=== PATIENT | male | born 1960 | race Caucasian/White ===

== ENCOUNTER 2017-05-27 11:02 | Outpatient (CLI) ==
--- NOTE | 2017-05-27 11:50 | DI ---
EXAM: Five views of the lumbar spine HISTORY: Left-sided sciatica. COMPARISON: None FINDINGS: There is no acute compression fracture. Minimal nonspecific wedge deformity at L4 and supe rior endplate minimal changes at L2. There is no lytic or blastic lesion. There is minimal facet ar thropathy and disc osteophytes. The lumbosacral junction is intact. IMPRESSION: 1. No acute compression fracture or subluxation. 2. 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 There is mild wedge def ormity at L4.
== END 2017-05-27 11:03 | disposition home or self-care (01) ==
LOC: RAD 11:02
PROVIDERS: ATTEND Internal Medicine
DX: M54.32 Sciatica, left side (principal)

== ENCOUNTER 2017-07-25 15:45 | Outpatient (RCR) ==
--- NOTE | 2017-07-18 13:26 | RS.OPPTEV2 ---
Date of Note: 07/15/17 Visit #: 1 Date of Evaluation: 07/15/17 Payer Source: Insurance Surgery Performed?: No Treatment Diagnosis: displacement of lumbar intervertebral disc without myelopathy History of Condition/Mechanism of Injury:: pt has had long history of LBP. Prior Level of Function.....Patient was independent with: ADL's, Self Care, Work /Vocation, Ambulation/Mobility, Community Integration/Access Functional Limitations: Bending, Squatting, Ambulation, Community Access/ Integration Current Subjective/complaints:: pt states that he needs to make it 2 more years working before he retires. States that his pain has been increasing recently. Treatment Side (optional): Bilateral *Precautions: n/a Medical History Medical History: Hypertension Surgical History Comments:: appey, torn meniscus R Smoking Status: Former smoker Diagnostic Testing/Imaging:: had an MRI at [facility] Hx Home Medications: losartin, norco, seroquel, clonazepam, chantix Patient's Goals: decrease back pain and be able to work for 2 more years. Pain Assessment - Pain Description Pain Location: lumbar spine Pain Description: Radiating, Aching Current Pain Intensity: 5-6 Worst Pain Intensity: 6-8 Functional Outcome Measure Oswestry LBP: 19 (38%) - G Codes & Severity Modifier G Codes & Modifier: n/a Source of G Code score: n/a Observation - Observation Posture: Forward Head, Rounded Shoulders, Increased Thoracic Kyphosis, Decreased Lumbar Lordosis Gait - Gait Pattern Gait Comments: slight increased lat sway General Range of Motion: BUE WFL's. BLE WFL's Muscle Strength: BUE 5/5. BLE 5/5 - ROM Lumbar Flexion: Hand reach to patellae Sidebending to Left: Reach to Lateral Joint Line Sidebending to Right: Reach to Lateral Joint Line Lumbar Spine ROM Limitations: Soft Tissue Tightness, Muscle Weakness, Pain - Special Tests SLR Test: Positive Right Comments: pt with pain with ext, slight decreased pain with knee to chest. Palpation Palpation Findings: Tenderness, Trigger Point Comments:: trigger points noted in R lower lumbar. Tightness in B hamstrings, and piriformis Sensation - Sensation Right Lower Extremity: Impaired Comments: n/t B feet R worse than left Balance - Sitting Balance Static Sitting Balance: Normal Dynamic Sitting Balance: Normal - Standing Balance Static Standing Balance: Normal Dynamic Standing Balance: Normal - Treatment Modality: Electrical Stim Unattended Parameters/Method Applied: IFC x 20 mins at 12pv Treatment Area: R lumbar area Patient Position: Left Sidelying - Heat/Cryotherapy Treatment: Hot Pack Comments:: lumbar area Interventions - Exercise/Activities/Manual Therapy Exercises/Activities: pt performed pelvic tilt, knee to chest, hamstring stretch , piriformis stretch, isometric hip add. Manual Therapy: n/a HOME EXERCISE PROGRAM: pt given written HEP including pelvic tilts, knee to chest, hamstring stretch, piriformis stretch, isometric hip add - Charges Timed Code Treatment Minutes: 42 Total Treatment Time: 64 Procedures billed for this date of service:: eval low, estim unattended, hot pack EVALUATION COMPLEXITY LEVEL EVALUATION COMPLEXITY LEVEL: HISTORY: Low (back pain, htn), EXAM OF BODY SYSTEMS : Medium (pain, ROM, strength, muscle tightness), CLINICAL PRESENTATION: Low ( stable), CLINICAL DECISION MAKING: Low Assessment Assessment: pt presents with lumbar pain radiating into RLE. pt with mod tightness in B hamstring, piriformis. pt with decreased sensation R worse than L. Feel pt would benefit from skilled PT for therex for gentle stretching and strengthening for back stabilization. Patient Education: Home Exercise Program, Education of Plan of Care Rehab Potential: Good Short Term Goals Goal #1: pt rate pain <5 with activity Goal to be met by: 07/29/17 Goal #2: pt with decreased hamstring/piriformis tightness Goal to be met by: 07/29/17 Goal #3: pt independent with initial HEP Goal to be met by: 07/29/17 Senior Living Goals Goal #1: pt rate pain <3 with activity with no radiating pain into RLE Goal to be met by: 08/19/17 Goal #2: pt report increased ability to perform work duties with decreased pain. Goal to be met by: 08/19/17 Goal #3: B hamstrings equal BLE Goal to be met by: 08/19/17 Plan - Treatment to be Provided Procedures: Therapeutic Exercises, Therapeutic Activity, Manual Therapy, Massage , Patient Education Modalities: Electrical Stimulation, Ultrasound/Phonophoresis, Class IV Laser, Cryotherapy, Hot Packs - Treatment Plan Frequency: 2-3x a week Duration: 6 weeks ORDER # VISITS AND/OR THROUGH DATE: 08/19/17 - Treatment Code (1) Lumbar back pain with radiculopathy affecting right lower extremity Code(s): M54.17 - RADICULOPATHY, LUMBOSACRAL REGION (2) Muscle tightness Code(s): M62.89 - OTHER SPECIFIED DISORDERS OF MUSCLE
--- NOTE | 2017-07-18 16:54 | RS.OPPTDN ---
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 He says he plans to go home and rest after today's session. Rates pain 7/10 with [place], 3 Ale[place], and B.C. powder today. *Precautions: n/a - Treatment Modality: Electrical Stim Unattended Parameters/Method Applied: IFC @ 23 pk volts to the lower back in sidelying with heat Patient Position: Left Sidelying - Heat/Cryotherapy Treatment: Hot Pack Interventions - Exercise/Activities/Manual Therapy Exercises/Activities: Patient receives passive stretching for SKTC, HS, Piriformis, and lower trunk rotation x 3 bilaterally. He performs pillow squeezes, isometric hip abd/flexion x 10. Total minutes of Exercise: 16 Manual Therapy: n/a HOME EXERCISE PROGRAM: pt given written HEP including pelvic tilts, knee to chest, hamstring stretch, piriformis stretch, isometric hip add - Charges Timed Code Treatment Minutes: 16 Total Treatment Time: 36 Procedures billed for this date of service:: hp, estim (un), ex Assessment: Patient demo hamstring inflexibility bilaterally, but did improve with progressive stretching today. Decreased pain noted with initial treatment at eval, but later increased with returning to job duties. Today, he admits improved pain and will be going home afterwards and resting. He provides only minimal resistance with all isometrics today. Patient Education: Education of diagnosis, Body/Joint mechanics, Home Exercise Program, Education of Plan of Care Short Term Goals Goal #1: pt rate pain <5 with activity Goal to be met by: 07/29/17 Goal #2: pt with decreased hamstring/piriformis tightness Goal to be met by: 07/29/17 Goal #3: pt independent with initial HEP Goal to be met by: 07/29/17 [employer] Member [employer]anks Goals Goal #1: pt rate pain <3 with activity with no radiating pain into RLE Goal to be met by: 08/19/17 Goal #2: pt report increased ability to perform work duties with decreased pain. Goal to be met by: 08/19/17 Goal #3: B hamstrings equal BLE Goal to be met by: 08/19/17 Plan PLAN OF CARE EXPIRES ON:: 08/19/17 ORDER # VISITS AND/OR THROUGH DATE: 08/19/17 PLAN: TIW for modalties and therex to relieve back pain and provide flexibility and progress with lumbar stability.
--- NOTE | 2017-07-25 16:09 | RS.OPPTDN ---
Subjective Date of Note: 07/20/17 Visit #: 3 Date of Evaluation: 07/15/17 Payer Source: Insurance Treatment Diagnosis: displacement of lumbar intervertebral disc without myelopathy Current Subjective/complaints:: Patient says he is looking forward to his treatment today. Reports he was lifting and twisting with a chainsaw today due to job task and felt both of his LEs become numb and felt he was going to fall. He denies anticipated fall however, but did need to stop that particular activity. *Precautions: n/a Pain Assessment - Pain Description Pain Location: both sides of mid to low back and into bilateral LE's with intermittent numbness - Treatment Modality: Electrical Stim Unattended Parameters/Method Applied: IFC @ 27 pk volts x 20 mins to lower lumbar paraspinals Patient Position: Left Sidelying - Heat/Cryotherapy Treatment: Hot Pack Interventions - Exercise/Activities/Manual Therapy Exercises/Activities: Patient receives passive stretching for SKTC, HS, Piriformis, and lower trunk rotation x 3 bilaterally. He performs pillow squeezes, isometric hip abd/flexion x 10. Total minutes of Exercise: 17 Manual Therapy: n/a HOME EXERCISE PROGRAM: pt given written HEP including pelvic tilts, knee to chest, hamstring stretch, piriformis stretch, isometric hip add - Charges Timed Code Treatment Minutes: 17 Total Treatment Time: 37 Procedures billed for this date of service:: hp, estim (un), ex Assessment: Patient with elevated pain today causing numbness down the R leg to the foot with performing a twisting activity at work using a chainsaw. He admits improved pain level at end of session. Hamstrings and piriformis remain tight and guarded, but he is able to domingo stability exercises today. 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 Goal to be met by: 08/19/17 Goal #3: B hamstrings equal BLE Goal to be met by: 08/19/17 Plan PLAN OF CARE EXPIRES ON:: 08/19/17 ORDER # VISITS AND/OR THROUGH DATE: 08/19/17 PLAN: Patient to continue BIW for modalties and therex
--- NOTE | 2017-07-25 16:45 | RS.OPPTDN ---
Subjective Date of Note: 07/25/17 Visit #: 4 Date of Evaluation: 07/15/17 Payer Source: Insurance Treatment Diagnosis: displacement of lumbar intervertebral disc without myelopathy Current Subjective/complaints:: Patient says he had more pain on Tuesday, but doesn't relate any particular activity to this elevation. He says overall, treatment has been helping. He also says he has been sleeping better as well. *Precautions: n/a - Treatment Modality: Electrical Stim Unattended Parameters/Method Applied: IFC @ 21 pk volts x 20 mins to the mid to lumbar paraspinals Patient Position: Left Sidelying - Heat/Cryotherapy Treatment: Hot Pack Interventions - Exercise/Activities/Manual Therapy Exercises/Activities: Patient receives passive stretching for SKTC, HS, Piriformis, and lower trunk rotation x 3 bilaterally. He performs pillow squeezes, isometric hip flexion x 1. Green tband hooklying hip abd and DF x 10. Total minutes of Exercise: 19 Manual Therapy: n/a HOME EXERCISE PROGRAM: pt given written HEP including pelvic tilts, knee to chest, hamstring stretch, piriformis stretch, isometric hip add - Charges Timed Code Treatment Minutes: 19 Total Treatment Time: 39 Procedures billed for this date of service:: hp, estim (un), ex Assessment: Patient presents with decreased pain since last session. He demo slightly more hamstring length during stretching today. Encouraged him to continue HEP often to improve flexiblity. 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 Goal to be met by: 08/19/17 Goal #3: B hamstrings equal BLE Goal to be met by: 08/19/17 Plan PLAN OF CARE EXPIRES ON:: 08/19/17 ORDER # VISITS AND/OR THROUGH DATE: 08/19/17 PLAN: Continue BIW
== END 2017-07-25 23:59 ==
PROVIDERS: ATTEND Nurse Practitioner
DX: M51.26 Other intervertebral disc displacement, lumbar region (principal); M54.17 Radiculopathy, lumbosacral region; M62.89 Other specified disorders of muscle

== ENCOUNTER 2017-08-08 15:30 | Outpatient (RCR) ==
--- NOTE | 2017-07-28 13:19 | RS.OPPTDN ---
Subjective Date of Note: 07/28/17 Visit #: 5 Date of Evaluation: 07/15/17 Payer Source: Insurance Treatment Diagnosis: displacement of lumbar intervertebral disc without myelopathy Current Subjective/complaints:: Patient says he has had less pain since last week. Reports he is performing stretches at home and is able to see more flexibility. He admits some job tasks remain difficult for him, but is not specific. *Precautions: n/a Pain Assessment - Pain Description Pain Location: R sided low back mostly. Occasionally down the R LE. - Treatment Modality: Electrical Stim Unattended Parameters/Method Applied: Hivolt 4 large pads L side controlled seperately from R @ 180-230 pk volts Treatment Area: bilateral lumbar paraspinals Patient Position: Left Sidelying - Heat/Cryotherapy Treatment: Hot Pack Interventions - Exercise/Activities/Manual Therapy Exercises/Activities: Patient receives progressive stretching for SKTC, HS, Figure 4, Piriformis, and lower trunk rotation x 3 bilaterally. He performs Ball squeezes, hooklying hip flexion with blue tband, DF and hip abd with blue tband x 1. QS and SLR x 10. Total minutes of Exercise: 22 Manual Therapy: n/a HOME EXERCISE PROGRAM: pt given written HEP including pelvic tilts, knee to chest, hamstring stretch, piriformis stretch, isometric hip add - Charges Timed Code Treatment Minutes: 22 Total Treatment Time: 42 Procedures billed for this date of service:: hp, estim (un), ex Assessment: Patient experiencing less back pain currently and has been having less radiating symptoms to the R LE. He demo increased R hamstring extensibility since last week nearly comparable to the L at this point. 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 Goal to be met by: 08/19/17 Goal #3: B hamstrings equal BLE Goal to be met by: 08/19/17 Plan PLAN OF CARE EXPIRES ON:: 08/19/17 ORDER # VISITS AND/OR THROUGH DATE: 08/19/17 PLAN: Patient to continue for progressive therex BIW
--- NOTE | 2017-08-02 08:23 | RS.OPPTDN ---
Subjective Date of Note: 08/01/17 Visit #: 6 Date of Evaluation: 07/15/17 Payer Source: Insurance Treatment Diagnosis: displacement of lumbar intervertebral disc without myelopathy Current Subjective/complaints:: Reports elevated pain today ,has been using a chain saw and lifting while at work.The sciatica on the R is in the entire leg and foot currently.Patient agrees to heat and exercise only today due to being twenty minutes late. *Precautions: n/a Pain Assessment - Pain Description Pain Location: lumbar and R hip /LE Pain Description: Radiating Current Pain Intensity: 10 - Heat/Cryotherapy Treatment: Hot Pack (20 mins. prior to exercises) Interventions - Exercise/Activities/Manual Therapy Exercises/Activities: 20 mins. of SKTC,DKTC,90/90 hamstring stretches,hooklying LTR,and piriformis stretches. Total minutes of Exercise: 20 Manual Therapy: n/a Total minutes of Manual Therapy: 0 HOME EXERCISE PROGRAM: pt given written HEP including pelvic tilts, knee to chest, hamstring stretch, piriformis stretch, isometric hip add - Charges Timed Code Treatment Minutes: 20 Total Treatment Time: 40 Procedures billed for this date of service:: hp,ex 1 Assessment: Patient enters nic with flexed posture ,reports elevated pain today due to work activities,such as using chain saw, and lifting.He has better hamstring extensibility bilaterally today.He is attentive and motivated to improve.He does have guarded movement with supine to sit due to low back pain.He appears to have good understanding of HEP and proper return demo today. Patient Education: Home Exercise Program Patient demonstrates compliance with HEP?: Yes Short Term Goals Goal #1: pt rate pain <5 with activity Goal to be met by: 07/29/17 (elevated today) Progress towards Goal:: Regressing Goal #2: pt with decreased hamstring/piriformis tightness Goal to be met by: 07/29/17 Progress towards Goal:: Progressing Goal #3: pt independent with initial HEP Goal to be met by: 07/29/17 Progress towards Goal:: Met [facility] Goals Goal #1: pt rate pain <3 with activity with no radiating pain into RLE Goal to be met by: 08/19/17 Goal #2: pt report increased ability to perform work duties with decreased pain. Goal to be met by: 08/19/17 Goal #3: B hamstrings equal BLE Goal to be met by: 08/19/17 (R slightly tighter than L before stretches) Progress towards goal: Partially Met Plan PLAN OF CARE EXPIRES ON:: 08/19/17 ORDER # VISITS AND/OR THROUGH DATE: 08/19/17 PLAN: Continue PT to reduce or eliminate LBP ,return to PLOF.
--- NOTE | 2017-08-08 16:38 | RS.OPPTDN ---
Subjective Date of Note: 08/08/17 Visit #: 8 Date of Evaluation: 07/15/17 Payer Source: Insurance Treatment Diagnosis: displacement of lumbar intervertebral disc without myelopathy Current Subjective/complaints:: Reports busy afternoon at work ,elevated pain currently. *Precautions: n/a Pain Assessment - Pain Description Pain Description: Radiating Pain Description: sciatica is slightly better,varies daily dependentt upon activity Current Pain Intensity: 6/10 - Treatment Modality: Ultrasound Parameters/Method Applied: 15 mins. @ 1.5 w/cm2.continuous mode to L hip . Patient Position: Right Sidelying Interventions - Exercise/Activities/Manual Therapy Exercises/Activities: 20 mins. of SKTC,DKTC,90/90 hamstring stretches,hooklying LTR,and piriformis stretches. Total minutes of Exercise: 20 Manual Therapy: n/a Total minutes of Manual Therapy: 0 HOME EXERCISE PROGRAM: pt given written HEP including pelvic tilts, knee to chest, hamstring stretch, piriformis stretch, isometric hip add - Charges Timed Code Treatment Minutes: 30 Total Treatment Time: 30 Procedures billed for this date of service:: US,ex 1 Assessment: Patient responds well to SKTC and hamstring stretches ,has full knee extension bilaterally.He is tender to palpate the trigger oint area in thwe L gluteal/piriformis region.He exits clinic with slight antalgic gait , which lessens as the gait distance progresses. 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 Goal to be met by: 08/19/17 Goal #3: B hamstrings equal BLE Goal to be met by: 08/19/17 (R slightly tighter than L before stretches) Progress towards goal: Met Plan PLAN OF CARE EXPIRES ON:: 08/19/17 ORDER # VISITS AND/OR THROUGH DATE: 08/19/17 PLAN: Continue PT to decrease LBP,be able to tolerate work duties safely .
--- NOTE | 2017-08-09 08:44 | RS.OPPTDN ---
Subjective Date of Note: 08/03/17 Visit #: 7 Date of Evaluation: 07/15/17 Payer Source: Insurance Treatment Diagnosis: displacement of lumbar intervertebral disc without myelopathy Current Subjective/complaints:: Patient says that he just had NCV test this morning and had pain from it, but since, his pain has decreased. He says that even with having the test today, his pain is not as high as usual because he did not have to work today. *Precautions: n/a Pain Assessment - Pain Description Pain Location: low back, none down the R LE today - Treatment Modality: Electrical Stim Unattended Parameters/Method Applied: hivolt x 15 mins @ 285 pk volts 4 large pads to the lumbar paraspinals Patient Position: Left Sidelying - Heat/Cryotherapy Treatment: Hot Pack Interventions - Exercise/Activities/Manual Therapy Exercises/Activities: 20 mins. of SKTC,DKTC,90/90 hamstring stretches,hooklying LTR,and piriformis stretches. Patient performs SLR, bridging, isometric hip abd /flexion, blue tband DF x 12 Manual Therapy: n/a HOME EXERCISE PROGRAM: pt given written HEP including pelvic tilts, knee to chest, hamstring stretch, piriformis stretch, isometric hip add - Charges Timed Code Treatment Minutes: 20 Total Treatment Time: 40 Procedures billed for this date of service:: hp, estim (un), ex Assessment: Patient experiencing reduced pain today, due to being off from work. Otherwise, he remains with heightened pain especially while working and using poor mechanics. Patient did just receive NCV today and denies any symptoms from it. He demo good hamstring length and improved bilateral hip and trunk strength. 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 Goal to be met by: 08/19/17 Goal #3: B hamstrings equal BLE Goal to be met by: 08/19/17 (R slightly tighter than L before stretches) Progress towards goal: Partially Met Plan PLAN OF CARE EXPIRES ON:: 08/19/17 ORDER # VISITS AND/OR THROUGH DATE: 08/19/17 PLAN: Continue next week then discharge
--- NOTE | 2017-08-10 11:49 | RS.CXNS ---
Date of scheduled appointment: 08/10/17 Type: Cancel Reason for Cancel/NS: No reason given
--- NOTE | 2017-08-29 16:10 | RS.QUICKDC ---
Discharge from PT Date of Discharge: 08/29/17 Number of Visits: 8 Reason for Discharge: Patient had remaining visits for PT, but no contact to schedule further sessions. He had reported pain relief with treatment, but was temporary as he maintained lumbar guarding throughout his work duties. He received moist heat, estim, trial of u/s, and therex including low back stretching, stability trunk exercises and education on body mechanics/posture. He received a HEP as well. See daily notes for specific treatment.
== END 2017-08-25 23:59 ==
PROVIDERS: ATTEND Nurse Practitioner
DX: M51.26 Other intervertebral disc displacement, lumbar region (principal); M54.17 Radiculopathy, lumbosacral region; M62.89 Other specified disorders of muscle